=== PATIENT | male | born 1950 | race Caucasian/White ===

== ENCOUNTER 2016-09-07 21:28 | Emergency (ER) | payer OTHER ==
[2016-09-07 21:44] VITALS: RESP 16; TEMP 98.2
--- NOTE | 2016-09-07 21:48 | CPEKG ---
Heart Rate: 69 RR Interval: 870 P-R Interval: 184 QRSD Interval: 92 QT Interval: 404 QTC Interval: 433 P [place]: 63 QRS [place]: 79 T Wave [place]: 62 EKG Severity - ABNORMAL ECG - EKG Impression: SINUS RHYTHM EKG Impression: MULTIPLE ATRIAL PREMATURE COMPLEXES Electronically Signed By: Tyler Caraballo 08-Sep-2016 00:16:48
--- NOTE | 2016-09-07 21:56 | UCPHY ---
H & P Patient Type: New Chief Complaint Nursing Narrative: C/o intermittent diarrhea (at night) x 5 weeks, fatigue x 4-6 weeks, and SOB and dizziness x 3 weeks. Denies chest pain/ pressure. Time Seen by Provider: 09/07/16 21:42 HPI/ROS: CHIEF COMPLAINT: Lightheaded, dizzy. HISTORY OF PRESENT ILLNESS: The patient is a 66-year-old male presenting with intermittent bouts of lightheadedness, associated with bedning over, a sensation as if her were to faint. nl PO intake. Drinks 1-2 alcohollic drinks nightly. CAGE: [place], thinking of: Yes Annoyed when others tell him to stop: No Guilty about his drinking: No [employer] vice [employer] [place] in the am: No The patient developed diarrhea 4-5 weeks ago, daily, but not every time as he has this in the am before his coffe. He has not noted any black discoloration or blood, but admits he does not look. He has since felt dizzy and lightheaded when bending over. He tends to get diaphoretic while sleeping, but not nightly and there is no weight loss or cough. Today the patient was doing house chores, painting while laying down. He felt fatigued this afternoon and went to take a shower. On his way to the shower the patient felt lightheaded, as if to faint. His said he was pale colored. While in the car on the way here he felt some palpitations for the first time, lasting seconds. He denies recent travel. No recent camping. He denies abdominal pain, nausea, or vomiting. Travel: None Others: None Antibiotics: He had a dose of amoxicillin about 4 months ago for a dental problem. He is status post hip replacement Bad Food: None Bad Water: None Recent Surgery: None REVIEW OF SYSTEMS: Constitutional: No fever, no chills. Eyes: No discharge. ENT: No sore throat. Cardiovascular: No chest pain, Respiratory: No cough, shortness of breath, or wheezing. Gastrointestinal: No abdominal pain. No nausea or vomiting. Genitourinary: No hematuria or frequency. Musculoskeletal: No back pain. Skin: No rashes. Neurological: No headache. 10 point ROS otherwise negative Source: Patient - Personal History Current Tetanus/Diphtheria Vaccine: Unsure Current Tetanus Diphtheria and Acellular Pertussis (TDAP): Unsure - Medical/Surgical History Hx Asthma: No Hx Chronic Respiratory Disease: No Hx Diabetes: No Hx Cardiac Disease: No Hx Renal Disease: No Hx Cirrhosis: No Hx Alcoholism: No Hx HIV/AIDS: No Hx Splenectomy or Spleen Trauma: No Other PMH: KIMANI, hemochromatosis, bilat MICHELLE - Family History Significant Family History: No pertinent family hx - Social History Smoking Status: Former smoker Alcohol Use: Heavy (he drinks 1-2 drinks daily) Drug Use: None Additional Social History: Quit smoking 2 weeks ago. Has alcohol nightly. - Physical Exam Exam: General Appearance: Alert, no distress. Afebrile. Normal phonation. No respiratory distress. Eyes: Pupils equal and round no pallor or injection. No icterus ENT, Mouth: Mucous membranes moist. Pharynx without erythema or exudate. TM Clear. Neck: No adenopathy. Supple. No JVD. Trachea in midline. Respiratory: There are no retractions, lungs are clear to auscultation. Cardiovascular: Regular rate and rhythm, with frequent ectopic beats. No murmur Abdomen: Soft and nontender, no masses, bowel sounds normal. Rectal: Brownish yellow flecks of stool on glove. No observable blood. No external hemorrhoids. Neurological: Ox3. No motor weakness. Sensation intact. Gait nl. Skin: Warm and dry, no rashes. Musculoskeletal: No joint swelling. Extremities: No edema. Homans sign negative. No cords. Psychiatric: Normal affect. Patient is oriented X 3, there is no agitation Constitutional: Initial Vital Signs Temperature (C) 36.8 C 09/07/16 21:34 Heart Rate 90 09/07/16 21:34 Respiratory Rate 16 09/07/16 21:34 Blood Pressure 171/93 H 09/07/16 21:34 O2 Sat (%) 91 L 09/07/16 21:34 O2 Delivery Mode Room Air Allergies/Adverse Reactions: No Known Allergies Allergy (Verified 09/07/16 21:44) Home Medications: Medication Instructions Recorded NK [No Known Home Meds] 09/07/16 Medical Decision Making - Diagnostics EKG Interpretation: The 12 lead EKG was interpreted by myself. See hard copy and/or "tracemaster" electronic copy for interpretation: Sinus rhythm, multiple atrial premature complexes. Imaging: Imaging Impressions Chest X-Ray 09/07/16 21:41 Impression: Mild interstitial thickening lung bases bilaterally, differential considerations above.. Films by me on the PAC system ED Course/Re-evaluation: The patient is a 66-year-old male presenting with lightheadedness and fatigue that has been intermittent for the past 4-6 weeks. The patient developed diarrhea 4 weeks ago and has since had loose stools. He has noticed himself feeling more fatigued than usual. The patient states he gets lightheaded when bending over. Tonight the patient went to shower and became very pale and lightheaded. While on his way here he had his first episode of heart palpitations. Plan to check labs, EKG, and Hemoccult. I viewed the X-ray of the chest myself on the PACS system. Please see the full radiology report in the imaging section. Hemoccult is negative. Lab work is significant for a mildly low hemoglobin for someone at this altitude. I do not have any old values to compare to though however. Of note he is he has history of hemochromatosis, and has occasional phlebotomies. Troponin is negative. I discussed findings with the patient. He has an appointment with his PCP in 2 days. I have explained to him that he is not to drive until medically cleared by his PCP - Data Points Laboratory Results: Laboratory Results 09/07/16 22:02 09/07/16 22:02 09/07/16 09/07/16 09/07/16 22:02 22:02 20:20 WBC 6.50 10^3/uL 10^3/uL (3.80-9.50) RBC 4.75 10^6/uL 10^6/uL (4.40-6.38) Hgb 13.3 g/dL L g/dL (13.7-17.5) Hct 39.9 % L % (40.0-51.0) MCV 84.0 fL fL (81.5-99.8) MCH 28.0 pg pg (27.9-34.1) MCHC 33.3 g/dL g/dL (32.4-36.7) RDW 18.0 % H % (11.5-15.2) Plt Count 218 10^3/uL 10^3/uL (150-400) MPV 10.3 fL fL (8.7-11.7) Neut % (Auto) 47.2 % % (39.3-74.2) Lymph % (Auto) 33.8 % % (15.0-45.0) [place] % (Auto) 13.8 % H % (4.5-13.0) Eos % (Auto) 3.8 % % (0.6-7.6) Baso % (Auto) 1.1 % % (0.3-1.7) Nucleat RBC Rel Count 0.0 % % (0.0-0.2) Absolute Neuts (auto) 3.06 10^3/uL 10^3/uL (1.70-6.50) Absolute Lymphs (auto) 2.20 10^3/uL 10^3/uL (1.00-3.00) Absolute Monos (auto) 0.90 10^3/uL H 10^3/uL (0.30-0.80) Absolute Eos (auto) 0.25 10^3/uL 10^3/uL (0.03-0.40) Absolute Basos (auto) 0.07 10^3/uL 10^3/uL (0.02-0.10) Absolute Nucleated RBC 0.00 10^3/uL 10^3/uL (0-0.01) Immature Gran % 0.3 % % (0.0-1.1) Immature Gran # 0.02 10^3/uL 10^3/uL (0.00-0.10) Sodium 144 mEq/L mEq/L (134-144) Potassium 4.1 mEq/L mEq/L (3.5-5.2) Chloride 102 mEq/L mEq/L (97-110) Carbon Dioxide 25 mEq/l mEq/l (22-31) Anion Gap 17 mEq/L H mEq/L (8-16) BUN 19 mg/dL mg/dL (7-23) Creatinine 0.7 mg/dL mg/dL (0.7-1.3) Estimated GFR > 60 Glucose 104 mg/dL H mg/dL (70-100) Calcium 9.5 mg/dL mg/dL (8.5-10.4) Magnesium 1.8 mg/dL mg/dL (1.6-2.3) Total Bilirubin 0.4 mg/dL mg/dL (0.1-1.4) Conjugated Bilirubin 0.2 mg/dL mg/dL (0.0-0.5) Unconjugated Bilirubin 0.2 mg/dL mg/dL (0.0-1.1) AST 26 IU/L IU/L (17-59) ALT 36 IU/L IU/L (21-72) Alkaline Phosphatase 94 IU/L IU/L (38-126) Troponin I < 0.012 ng/mL ng/mL (0-0.034) Total Protein 7.6 g/dL g/dL (6.3-8.2) Albumin 4.1 g/dL g/dL (3.5-5.0) Stool Occult Bld Scrn NEGATIVE (NEGATIVE) Departure - Departure Disposition: Home, Routine, Self-Care Clinical Impression: Lightheaded, Palpitations, PAC (premature atrial contraction) Fatigue Qualifiers: Fatigue type: unspecified Qualified Code(s): R53.83 - Other fatigue Anemia Qualifiers: Anemia type: unspecified type Qualified Code(s): D64.9 - Anemia, unspecified Condition: Good Instructions: Lightheadedness (ED), Fatigue (ED) Additional Instructions: Drink plenty of fluids. Please keep your appointment with your primary care physician on Thursday. Return for new or worsening symptoms. Going forward, stop taking the Advil 3 arthritis. Instead, take Tylenol extended-release: 1300 mg 3 times daily as needed for the pains injury joints No more caffeine. Drinks green tea instead. When you feel the palpitations, check your pulse, as I showed you Finally, stop all alcohol. This is for good measure. It has been known to suppress the bone marrow. Referrals: Sherman Cloud [Other] - As per Instructions - PQRS PQRS Measurement: 134: Depression screening and followup, PRIME MD-PHQ2 (12 years and older) Over the last 2 weeks, how often have you been bothered by any of the following problems? 1. Feeling down, depressed, or hopeless? 2. Little interest or pleasure in doing things? Patient answered no to both 1 and 2 130: Documentation of medications. Reviewed all patient medications, doses, route and frequency. Unable to obtain meds due to critical illness altered mental status patient did not know. 226: Do you smoke? No. Quit 6 weeks ago 47: 65 and older: Advanced care planning. Patient designates surrogate decision maker as spouse . Patient has advanced directive. 51: 18 years old and older with diagnosis of COPD, spirometry performance. Patient has no history of COPD 52: 18 years old and older with COPD and symptoms of COPD or FEV1<60% predicted prescribed a B Agonist. Patient has no history of COPD Report Scribed for: Tyler Caraballo Report Scribed by: Janay Taylor Date of Report: 09/07/16 Time of Report: 22:13
[2016-09-07 22:12] LABS: % IMMATURE GRANULYOCYTES 0.3 % (0.0-1.1); ABSOLUTE IMMATURE GRANULOCYTES 0.02 10^3/uL (0.00-0.10); ADD DIFF? NO; ADD MORPH? NO; ADD SCAN? NO; ATYPICAL LYMPHOCYTE FLAG 0 (0-99); FRAGMENT RBC FLAG 0 (0-99); HEMATOCRIT 39.9 % (40.0-51.0); HEMOGLOBIN 13.3 g/dL (13.7-17.5); LEFT SHIFT FLG 0 (0-99); LIPEMIA HEMOLYSIS FLAG 80 (0-99); MEAN CELL HEMOGLOBIN CONCENTR. 33.3 g/dL (32.4-36.7); MEAN PLATELET VOLUME 10.3 fL (8.7-11.7); PLATELET CLUMPS FLAG 10 (0-99); PLATELET COUNT 218 10^3/uL (150-400); RED BLOOD CELL COUNT 4.75 10^6/uL (4.40-6.38)
[2016-09-07 22:28] LABS: ALANINE AMINOTRANSFERASE 36 IU/L (21-72); ALBUMIN 4.1 g/dL (3.5-5.0); ALKALINE PHOSPHATASE 94 IU/L (38-126); ANION GAP 17 mEq/L (8-16); ASPARTATE AMINOTRANSFERASE 26 IU/L (17-59); BILIRUBIN,TOTAL 0.4 mg/dL (0.1-1.4); BILIRUBIN-CONJUGATED 0.2 mg/dL (0.0-0.5); BILIRUBIN-UNCONJUGATED 0.2 mg/dL (0.0-1.1); CALCIUM 9.5 mg/dL (8.5-10.4); CARBON DIOXIDE 25 mEq/l (22-31); CHLORIDE 102 mEq/L (97-110); CREATININE 0.7 mg/dL (0.7-1.3); GLOMERULAR FILTRATION RATE > 60; GLUCOSE 104 mg/dL (70-100); MAGNESIUM 1.8 mg/dL (1.6-2.3); POTASSIUM 4.1 mEq/L (3.5-5.2); SODIUM 144 mEq/L (134-144); TOTAL PROTEIN 7.6 g/dL (6.3-8.2)
[2016-09-07 22:37] LABS: TROPONIN I < 0.012 ng/mL (0-0.034)
[2016-09-07 23:26] VITALS: BP 181/98; PULSE 71; O2SAT 92
== END 2016-09-07 23:24 | disposition home or self-care (01) ==
LOC: CED 21:28
DX: R42 Dizziness and giddiness (principal); R53.83 Other fatigue; D64.9 Anemia, unspecified; R00.2 Palpitations; G47.33 Obstructive sleep apnea (adult) (pediatric); E83.119 Hemochromatosis, unspecified; Z87.891 Personal history of nicotine dependence
CPT/HCPCS: 71020; 93005; G0463; 80048-PO; 80076-PO; 82270-PO; 83735-PO; 84484-PO; 85025-PO; 93010-PO; 99205-PO